=== PATIENT | male | born 2000 | race Native Hawaiian/Other Pacific Islander ===

== ENCOUNTER 2024-12-06 15:17 | Emergency (ER) | payer BC, SELFPAY ==
[2024-12-06 15:25] VITALS: BP 145/91; PULSE 92; RESP 18; TEMP 36.3; O2SAT 95; BMI 41.6
--- NOTE | 2024-12-06 18:56 | ED.SOB ---
HPI - SOB/Dyspnea General Chief Complaint: Shortness of Breath/Dyspnea Stated Complaint: Trouble breathing Time Seen by Provider: 12/06/24 18:33 History of Present Illness HPI Narrative: This 24-year-old male comes in reporting some tightness in his breathing. He states that he does use albuterol inhaler intermittently as needed. There are months at a time when he does not use it at all but at other times when there are allergies more reactive or when having an upper respiratory infection he may use it quite a bit. He is not on any other preventative medicine. Currently he denies having any symptoms of upper respiratory infection. He arrives here with normal vital signs. Related Data Home Medications ?Medication ?Instructions ?Recorded ?Confirmed albuterol sulfate 90 mcg/actuation inhalation 12/19/23 12/19/23 aerosol inhaler (Ventolin HFA) fexofenadine 180 mg tablet 180 mg PO DAILY 12/19/23 12/06/24 (Allergy Relief (fexofenadine)) methylphenidate HCl 72 mg mg PO DAILY 12/06/24 tablet,extended release 24 hr Previous Rx's ?Medication ?Instructions ?Recorded methylprednisolone 4 mg tablets in See Rx Instructions PO .COMPLEX 12/06/24 a dose pack (Medrol (Rosalio)) #21 ea Allergies Allergy/AdvReac Type Severity Reaction Status Date / Time peanut Allergy Severe Verified 12/06/24 15:33 Penicillins Allergy Unknown Verified 12/06/24 15:33 Review of Systems Status of ROS: Reports: 10 or more systems reviewed and unremarkable except as noted in History and below Narrative: Constitutional: No fevers, no weight gain or loss. Eyes: No discharge. No vision changes. HENT: No congestion, no sore throat, no ear pain. Cardiovascular: No chest pain, no palpitations. Respiratory: No shortness of breath, no wheezes, no cough. He reports some tightness in his breathing. Gastrointestinal: No abdominal pain, no vomiting, no diarrhea. Genitourinary: No dysuria, no hematuria. Musculoskeletal: Normal range of motion. Skin: No rashes, no pruritis. Neurological: No dizziness, weakness, sensory change, speech change. Endo/Heme/Allergies: No bruising or bleeding. No polydipsia. Pysch: no suicidality, no anxiety, no insomnia. All other systems reviewed and are negative. Exam Narrative: Exam Narrative: Constitutional: Well-developed, well-nourished, no acute distress. HEENT: Normocephalic, atraumatic. Neck: Normal range of motion. Nontender. Supple. Heart: Regular. No murmurs. Normal rate. Intact distal pulses. Lungs: Clear to auscultation. No chest discomfort. No wheezes, rhonchi, or rales. Abdomen: Normal bowel sounds. Nontender. No rebound tenderness. Genitalia: Deferred. Back: No midline tenderness. Normal range of motion. Extremities: Normal range of motion. No injury. Skin: Intact. No rash. Warm. No erythema or pallor. Neurologic: No altered sensation. No weakness. Alert and oriented. Psychiatric: No suicidality. No anxiety or depression. No insomnia. Nursing notes and vitals signs are reviewed. Const: Vital Signs, click to edit/add: Vital Signs - 24 hr 12/06/24 15:25 Temperature 97.3 F L Pulse Rate [Right Pulse Oximeter] 92 Respiratory Rate 18 Blood Pressure [Ri ght Upper Arm] 145/91 H Pulse Oximetry 95 Oxygen Delivery Me thod Room Air Course Vital Signs Vital signs: Initial Vital Signs Temperature 97.3 F L 12/06/24 15:25 Temperature Source Temporal Artery Scan 12/06/24 15:25 Pulse Rate 92 12/06/24 15:25 Pulse Rhythm Regular 12/06/24 15:25 Pulse Strength 3+ Normal 12/06/24 15:25 Respiratory Rate 18 12/06/24 15:25 Blood Pressure 145/91 H 12/06/24 15:25 Blood Pressure Mean 109 H 12/06/24 15:25 Blood Pressure Position Sitting 12/06/24 15:25 Pulse Oximetry 95 12/06/24 15:25 Oxygen Delivery Method Room Air 12/06/24 15:25 Vital Signs Temperature 97.3 F L 12/06/24 15:25 Pulse Rate 92 12/06/24 15:25 Respiratory Rate 18 12/06/24 15:25 Blood Pressure 145/91 H 12/06/24 15:25 Pulse Oximetry 95 12/06/24 15:25 Oxygen Delivery Method Room Air 12/06/24 15:25 Temperature 97.3 F L 12/06/24 15:25 Pulse Rate 92 12/06/24 15:25 Respiratory Rate 18 12/06/24 15:25 Blood Pressure 145/91 H 12/06/24 15:25 Pulse Oximetry 95 12/06/24 15:25 Oxygen Delivery Method Room Air 12/06/24 15:25 MDM - SOB/Dyspnea MDM Narrative Medical decision making narrative: This patient has mild intermittent asthma symptoms and has been using albuterol or the past couple days without too much benefit. He arrives here with normal-sounding lungs and has normal vital signs. He does not report any upper respiratory symptoms of infection. The patient received an oral dose of dexamethasone 10 mg and I did also provide a prescription for a Medrol Dosepak. Discharge Plan Discharge Clinical Impression: Asthma with acute exacerbation Patient Disposition: Home, Self-Care Condition: Stable Additional Instructions: Use albuterol as needed and directed. Take Medrol Dosepak also as directed. Follow up with MD return if worsening symptoms occur. Prescriptions: New methylprednisolone [Medrol (Rosalio)] 4 mg tablets,dose pack See Rx Instructions .ROUTE .COMPLEX Qty: 21 0RF Rx Instructions: orally per package directions No Action albuterol sulfate [Ventolin HFA] 90 mcg/actuation HFA aerosol inhaler inhalation fexofenadine [Allergy Relief (fexofenadine)] 180 mg tablet 180 mg PO DAILY methylphenidate HCl 72 mg tablet extended release 24hr PO DAILY Follow Up/Referrals: Provider,Not a Local [Primary Care Provider] - Stand Alone Forms: [employer] Info Instructions
[2024-12-06] MEDS: dexAMETHasone 10 MG/ML inj PO (19:03)
== END 2024-12-06 19:08 | disposition home or self-care (01) ==
LOC: ED 19:06
PROVIDERS: Emergency Provider Emergency Medicine Emergency Medical Services
DX: J45.901 Unspecified asthma with (acute) exacerbation (principal)
CPT/HCPCS: 93005; 99284; J1100

== ENCOUNTER 2025-06-22 15:30 | Outpatient (RCR) | payer BC, SELFPAY | END 2025-09-13 08:56 | disposition home or self-care (01) | PROVIDERS: Visit Provider Physician Assistant Medical | DX: S99.912D Unspecified injury of left ankle, subsequent encounter (principal); M77.52 Other enthesopathy of left foot and ankle; Z51.89 Encounter for other specified aftercare | CPT/HCPCS: 97110; 97140; 97161; 97535 ==